=== PATIENT | female | born 1985 | race Caucasian/White ===

== ENCOUNTER → 2016-10-19 | Outpatient (CLI) | payer BC | END | disposition home or self-care (01) | LOC: PTH.S 17:39 | DX: E34.9 Endocrine disorder, unspecified (principal); N94.3 Premenstrual tension syndrome ==

== ENCOUNTER → 2016-11-26 | Outpatient (CLI) | payer BC | END | disposition home or self-care (01) | LOC: PTH.S 19:45 → PTH.O 19:45 | DX: N94.3 Premenstrual tension syndrome (principal); E34.9 Endocrine disorder, unspecified ==